=== PATIENT | male | born 1995 | race Caucasian/White ===

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

== ENCOUNTER 2018-09-13 12:12 | Emergency (ER) | payer BC ==
[2018-09-13 12:26] VITALS: BP 122/68
--- NOTE | 2018-09-13 12:38 | UC ---
Complaint Female HPI - HPI Summary HPI Summary: patient noted a tender lump on posterior surface of right testicle today----he is very worried about it---no inury or urinary symptoms - History Of Current Complaint Chief Complaint: UCAbdominalPain Stated Complaint: ABDOMINAL COMPLAINT Time Seen by Provider: 09/13/18 12:21 Hx Obtained From: Patient ?: No Onset/Duration: Sudden Onset Timing: Constant Pain Intensity: 2 Pain Scale Used: 0-10 Numeric Character: Dull Aggravating Factor(s): Nothing Alleviating Factor(s): Nothing Associated Signs And Symptoms: Positive: Negative - Allergies/Home Medications Allergies/Adverse Reactions: Allergies Allergy/AdvReac Type Severity Reaction Status Date / Time methimazole Allergy Hives Verified 09/13/18 12:26 PMH/Surg Hx/FS Hx/Imm Hx Previously Healthy: No Endocrine History: Hypothyroidism - Surgical History Surgical History: Yes Surgery Procedure, Year, and Place: WISDOM TEETH, thyroidectomy 05/08/16 - Family History Known Family History: Positive: None - Social History Occupation: Employed Full-time Lives: With Family Alcohol Use: None Substance Use Type: Marijuana Substance Use Comment - Amount & Last Used: MONTHLY Smoking Status (MU): Never Smoked Tobacco Have You Smoked in the Last Year: No - Immunization History Most Recent Influenza Vaccination: 02/2016 Most Recent Tetanus Shot: unknown Most Recent Pneumonia Vaccination: not needed Review of Systems All Other Systems Reviewed And Are Negative: Yes Constitutional: Positive: Negative Skin: Positive: Negative Eyes: Positive: Negative ENT: Positive: Negative Respiratory: Positive: Negative Cardiovascular: Positive: Negative Gastrointestinal: Positive: Negative Genitourinary: Positive: Other - right testicular pain Motor: Positive: Negative Neurovascular: Positive: Negative Musculoskeletal: Positive: Negative Neurological: Positive: Negative Psychological: Positive: Negative Is Patient Immunocompromised?: No Physical Exam Triage Information Reviewed: Yes Appearance: Well-Appearing, No Pain Distress, Well-Nourished Vital Signs: Initial Vital Signs Temp 99.2 F 09/13/18 12:21 Pulse 91 09/13/18 12:21 Resp 18 09/13/18 12:21 BP 122/68 09/13/18 12:21 Pulse Ox 99 09/13/18 12:21 Vital Signs Reviewed: Yes Eye Exam: Normal Eyes: Positive: Conjunctiva Clear ENT Exam: Normal ENT: Positive: Normal ENT inspection, Hearing grossly normal. Negative: Trismus , Muffled voice, Hoarse voice Neck exam: Normal Neck: Positive: Supple, Nontender Respiratory Exam: Normal Respiratory: Positive: No respiratory distress, No accessory muscle use Cardiovascular Exam: Normal Cardiovascular: Positive: Pulses Normal, Brisk Capillary Refill Abdominal Exam: Normal Abdomen Description: Positive: Nontender, No Organomegaly, Soft. Negative: CVA Tenderness (R), CVA Tenderness (L) Male Genital Exam: Positive: Testicular Tenderness (R). Negative: Hernia Mass Musculoskeletal Exam: Normal Musculoskeletal: Positive: Strength Intact, ROM Intact Neurological Exam: Normal Neurological: Positive: Alert, Muscle Tone Normal Psychological Exam: Normal Psychological: Positive: Normal Response To Family Skin Exam: Normal Complaint Female Dx - Course Course Of Treatment: patient offered option to follow in ED today or with PCP this week---patient wishes to follow in ED today - Differential Dx/Diagnosis Provider Diagnosis: Testicular pain, right Discharge - Sign-Out/Discharge Documenting (check all that apply): Patient Departure All imaging exams completed and their final reports reviewed: No Studies - Discharge Plan Condition: Stable Disposition: HOME-RECOMMEND TO ED Patient Education Materials: Testicle Pain (ED) Referrals: Michael Guerrero MD [Primary Care Provider] - Additional Instructions: Please go to emergency department for further evaluation of testicular lump/pain - Billing Disposition and Condition Condition: STABLE Disposition: Home-Recommend to ED
== END 2018-09-13 12:45 | disposition home health service (06) ==
LOC: UCEAST 12:12
DX: N50.811 Right testicular pain (principal)
CPT/HCPCS: 99212; G0463

== ENCOUNTER 2018-09-13 13:04 | Emergency (ER) | payer BC ==
--- NOTE | 2018-09-13 13:31 | ED ---
GI/ HPI - HPI Summary HPI Summary: This patient is a 23 year old M presenting to [facility] accompanied by his mother with a chief complaint of testicular pain, worse on the left that is radiating from left groin since 09/10/18 after running into a wheelbarrow handle. Denies flank pain, fevers, chills, urinary frequency, dysuria, penile discharge. Denies history of STDs. Currently sexually active with one partner roughly every two weeks. - History of Current Complaint Chief Complaint: EDHipPelvisInjury Time Seen by Provider: 09/13/18 13:17 Stated Complaint: "TESTICULAR PAIN PER PT COMING FROM [facility] Hx Obtained From: Patient Onset/Duration: Started Days Ago Timing: Constant Pain Intensity: 3 Additional Locations for Males: Testicles Pain Radiates to: Inguinal Associated Signs and Symptoms: Positive: Negative - Additional Pertinent History Primary Care Physician: [id number] - Allergy/Home Medications Allergies/Adverse Reactions: Allergies Allergy/AdvReac Type Severity Reaction Status Date / Time methimazole Allergy Hives Verified 09/13/18 13:11 Home Medications: Home Medications Levothyroxine Sodium 150 mg PO DAILY 09/13/18 [History Confirmed 09/13/18] PMH/Surg Hx/FS Hx/Imm Hx Endocrine/Hematology History: Reports: Hx Thyroid Disease - removed Cardiovascular History: Reports: Other Cardiovascular Problems/Disorders - dextrocardia Respiratory History: Reports: Other Respiratory Problems/Disorders - congenital anomaly GI History: Denies: Hx Jaundice Sensory History: Denies: Hx Contacts or Glasses, Hx Hearing Aid Opthamlomology History: Denies: Hx Contacts or Glasses Neurological History: Denies: Other Neuro Impairments/Disorders - Surgical History Surgery Procedure, Year, and Place: WISDOM TEETH, thyroidectomy 05/08/16 Hx Anesthesia Reactions: No Infectious Disease History: No Infectious Disease History: Denies: Traveled Outside the [place] in Last 30 Days - Family History Known Family History: Negative: Diabetes - Social History Alcohol Use: None Substance Use Type: Reports: Marijuana Substance Use Comment - Amount & Last Used: MONTHLY Smoking Status (MU): Never Smoked Tobacco Have You Smoked in the Last Year: No Review of Systems Negative: Fever Positive: pain - testicles. Negative: dysuria, discharge, frequency, flank pain All Other Systems Reviewed And Are Negative: Yes Physical Exam - Summary Physical Exam Summary: VITAL SIGNS: Reviewed. GENERAL: Patient is a well-developed and nourished male who is lying comfortable in the stretcher. Patient is not in any acute respiratory distress. HEAD AND FACE: Normocephalic and atraumatic. EYES: PERRLA, EOMI x 2, No injected conjunctiva. EARS: Hearing grossly intact. Ear canals and tympanic membranes are WNL. MOUTH: Oropharynx within normal limits. NECK: Supple, trachea is midline, no adenopathy, no JVD. CHEST: Symmetric, no tenderness at palpation LUNGS: Clear to auscultation bilaterally. No wheezing or crackles. CVS: RRR, S1 and S2 present, no murmurs or gallops appreciated. ABDOMEN: Soft, non-tender. No signs of distention. Positive bowel sounds. No rebound no guarding, and no masses palpated. No abdominal bruit or pulsations. EXTREMITIES: FROM in all major joints, no edema, no cyanosis or clubbing. NEURO: Alert and oriented x 3. No acute neurological deficits. Speech is normal. SKIN: Dry and warm. : Circumcised penis, both testicles are descended. No masses are appreciated. Positive cremasteric reflex. Triage Information Reviewed: Yes Vital Signs On Initial Exam: Initial Vitals Temp Pulse Resp BP Pulse Ox 97.7 F 75 16 115/72 98 09/13/18 13:05 09/13/18 13:05 09/13/18 13:05 09/13/18 13:05 09/13/18 13:05 Vital Signs Reviewed: Yes Diagnostics - Vital Signs Vital Signs Temp Pulse Resp BP Pulse Ox 09/13/18 13:05 97.7 F 75 16 115/72 98 - Laboratory Lab Statement: Any lab studies that have been ordered have been reviewed, and results considered in the medical decision making process. - Additional Comments Diagnostic Additional Comments: A Testicular US, reveals, "There is a small amount of fluid adjacent to the right epididymal head in this otherwise normal testicular ultrasound." per radiologist ED Physician has reviewed this report. GIGU Course/Dx - Course Assessment/Plan: This patient is a 23 year old M presenting to [facility] accompanied by his mother with a chief complaint of testicular pain, worse on the left that is radiating from left groin since 09/10/18 after running into a wheelbarrow handle. Denies flank pain, fevers, chills, urinary frequency, dysuria, penile discharge. Denies history of STDs. Currently sexually active with one partner roughly every two weeks. Urinalysis is negative for UTI. Testicular ultrasound impression: There is small amount of fluid adjacent to the right epididymal head in this otherwise normal testicular ultrasound. Patient was given Toradol for the pain and all his symptoms resolved. He also reported the patient had an episode of trauma in the same area couple days ago and since then the patient is having pain. Therefore I believe that the patient pulled muscle therefore the patient is having the pain. I discussed all the findings and test results with the patient. Patient was instructed to return to the emergency room immediately if any of the symptoms return worsens. Plan of care was discussed with the patient and understands and agrees. All questions were answered at patient satisfaction. There were no further complaints or concerns. Lung exam before discharge: CTA B/L. Good air exchange. No wheezing or crackles heard. CVS: S1 and S2 present. No murmurs appreciated. Patient is alert and oriented x 3. Patient is hemodynamically stable. Patient will be discharged home with follow up PCP in the next 2-3 days - Diagnoses Provider Diagnoses: Testicular pain Discharge - Sign-Out/Discharge Documenting (check all that apply): Patient Departure - discharge Patient Received Moderate/Deep Sedation with Procedure: No - Discharge Plan Condition: Stable Disposition: HOME Prescriptions: Naproxen TAB* [Naprosyn 250 mg TAB*] 500 mg PO Q8H PRN #20 tab PRN Reason: Pain Patient Education Materials: Testicle Pain (ED) Referrals: Michael Guerrero MD [Medical Doctor] - Richard Barrett MD [Medical Doctor] - 2 Days Additional Instructions: RETURN TO THE EMERGENCY DEPARTMENT FOR CHANGING OR WORSENING SYMPTOMS. Otherwise, follow up with urology. - Billing Disposition and Condition Condition: STABLE Disposition: Home - Attestation Statements Document Initiated by Scribe: Yes Documenting Scribe: Cassi Patel Provider For Whom Judy is Documenting (Include Credential): Young Jones MD Scribe Attestation: Cassi Ross, scribed for Young Jones MD on 09/13/18 at 1850. Scribe Documentation Reviewed: Yes Provider Attestation: The documentation as recorded by the Cassi faith accurately reflects the service I personally performed and the decisions made by me, Young Jones MD Status of Scribe Document: Viewed
[2018-09-13 14:48] LABS: Urine Appearance Clear; Urine Bilirubin Negative (Negative); Urine Blood Negative (Negative); Urine Color Yellow; Urine Glucose Negative (Negative); Urine Ketones Negative (Negative); Urine Nitrite Negative (Negative); Urine Protein Negative (Negative); Urine Specific Gravity 1.009 (1.010-1.030); Urine Urobilinogen Negative (Negative)
[2018-09-13] MEDS ORDERED: Ketorolac INJ* 60 MG/2 ML VIAL IM ONE (15:18)
[2018-09-13 15:59] VITALS: BP 126/74
== END 2018-09-13 15:58 | disposition home or self-care (01) ==
LOC: ED 13:04
DX: N50.812 Left testicular pain (principal); E07.9 Disorder of thyroid, unspecified; Z88.8 Allergy status to other drugs, medicaments and biological substances
CPT/HCPCS: 76870; 81003; 96372; 99282; J1885